=== PATIENT | female | born 1975 | race Caucasian/White ===

== ENCOUNTER → 2016-10-05 | Day surgery (SDC) | payer OTHER ==
[~2016-10-05] MED LIST: ALBUTEROL0.63 MG/3 INH; ALBUTEROL17 GM INH; BENADRYL25 M3 PO; DULERA 200 MCG/13 GM INH; EXCEDRIN MIGRA1 EACH PO; FIBERCON625 MG PO; PREDNISONE50 MG PO; SINGULAIR PO
--- NOTE | ~2016-10-05 | OR ---
Unit #: [id number] #: [id number] Patient: ERIC BADILLO [id number] [address] [place], [place] [address] [id number] MR#: [id number] NAME: ERIC BADILLO ROOM: Date of Procedure: 10/05/2016 Admission Date: 10/05/2016 Surgeon: Kamaljit Ch M.D. : 1975 Attending Physician: Kamaljit Ch M.D. Primary Care Physician: Mojgan Layne M.D. OPERATIVE REPORT PRIMARY CARE PHYSICIAN Jose Freeman M.D. PREOPERATIVE DIAGNOSES Hematochezia. PROCEDURES PERFORMED Colonoscopy and polypectomy. POSTOPERATIVE DIAGNOSES 1. A single sessile polyp in the mid descending colon. This was about 7 mm in size. It was removed using snare polypectomy. 2. Small internal hemorrhoids. 3. Rest of the examination up to cecum and terminal ileum was normal. The quality of the prep was excellent. RECOMMENDATIONS 1. FiberCon 1 to 2 caplets p.o. daily. 2. Follow up with results of polyp histology. 3. Repeat colonoscopy in 5 years. SEDATION USED MAC. DESCRIPTION OF PROCEDURE Following detailed explanation of potential risks and complications of a colonoscopy, namely perforation, bleeding, and complications related to sedation, the patient was brought to GI lab and laid in the left lateral decubitus position. A digital rectal examination was performed, which was normal. Lubricated tip of the Olympus video colonoscope was inserted through the anus and advanced under direct vision. The scope was advanced and passed up to sigmoid into descending colon. No diverticula were seen in this area. The scope tip was then navigated all the way up to cecum with visualization of ileocecal valve and the appendiceal orifice. Preparation was excellent with good visualization and photodocumentation was obtained. Last few inches of the terminal ileum also visualized after intubation of the ileocecal valve and appeared normal. Successive segments of the colonic mucosa were examined upon withdrawal. The patient was noted to have a single sessile polyp in the mid descending colon. The latter was removed using snare polypectomy. The polyp was about 7 mm in size. It was retrieved and sent for histology. No additional polyps noted. The patient did not have any diverticulosis. However, small Unit #: [id number] #: [id number] Patient: ERIC BADILLO internal hemorrhoids noted at the anal verge seen in the antegrade examination as well as retroflexion. The scope was then withdrawn. The patient returned to recovery area. She tolerated the procedure without any postprocedure complications. Dictated by... Corine Key/bertha TD: 10/06/2016 01:24 JOB #: [id number] CC: Jose Freeman M.D. OPERATIVE REPORT Page 1 of 1 X Kamaljit Ch MD X PROCEDURE OPERATIVE NOTE
== END | disposition home or self-care (01) ==
LOC: COPS 09:11
DX: D12.4 Benign neoplasm of descending colon (principal); K64.8 Other hemorrhoids; K21.9 Gastro-esophageal reflux disease without esophagitis; J45.909 Unspecified asthma, uncomplicated; Z90.49 Acquired absence of other specified parts of digestive tract; Z98.890 Other specified postprocedural states; Z79.899 Other long term (current) drug therapy
CPT/HCPCS: 84703; 88305; J2250